=== PATIENT | female | born 2000 | race American Indian/Alaskan Native ===

== ENCOUNTER 2020-08-16 08:00 | Outpatient (CLI) | payer OTHER | END 2020-08-16 08:30 | disposition home or self-care (01) | LOC: PPH VACUNA 08:00 | DX: Z23 Encounter for immunization (principal) ==

== ENCOUNTER 2020-09-05 08:00 | Outpatient (CLI) | payer OTHER | END 2020-09-05 08:30 | disposition home or self-care (01) | LOC: PPH VACUNA 08:00 | DX: Z23 Encounter for immunization (principal) ==

== ENCOUNTER 2021-02-18 10:54 | Emergency (ER) | payer OTHER ==
[~2021-02-18] VITALS: Ht 162.6 cm; Wt 51.7 kg
[2021-02-18] MEDS ORDERED: ZITHROMAX500 MG PO (12:55)
[2021-02-18] MEDS ORDERED: ZITHROMAX200 MG PO (12:57)
== END 2021-02-18 13:28 | disposition home or self-care (01) ==
LOC: ER 10:54
DX: B34.9 Viral infection, unspecified (principal); Z20.822 Contact with and (suspected) exposure to COVID-19

== ENCOUNTER 2021-05-20 11:12 | Emergency (ER) | payer OTHER ==
[~2021-05-20] VITALS: Ht 162.6 cm; Wt 53.1 kg
[~2021-05-20 11:12] MED LIST: ZITHROMAX200 MG PO; ZITHROMAX500 MG PO
== END 2021-05-20 15:59 | disposition home or self-care (01) ==
LOC: ER 11:12
DX: O20.9 Hemorrhage in early pregnancy, unspecified (principal); O34.81 Maternal care for other abnormalities of pelvic organs, first trimester; N83.201 Unspecified ovarian cyst, right side; Z3A.01 Less than 8 weeks gestation of pregnancy; Z91.018 Allergy to other foods

== ENCOUNTER 2021-08-11 07:33 | Emergency (ER) | payer OTHER | END 2021-08-11 14:52 | disposition home or self-care (01) | LOC: ER 07:33 | DX: O20.9 Hemorrhage in early pregnancy, unspecified (principal); Z3A.18 18 weeks gestation of pregnancy; Z91.018 Allergy to other foods ==

== ENCOUNTER 2022-10-06 09:23 | Emergency (ER) | payer OTHER ==
[~2022-10-06] VITALS: Ht 165.1 cm; Wt 61.2 kg
[~2022-10-06 09:23] MED LIST changes: +FOLIC ACID0.8 M1; +PRENATAL CAPLE1 EAC1
== END 2022-10-06 14:03 | disposition home or self-care (01) ==
LOC: ER 09:23
DX: H57.11 Ocular pain, right eye (principal); Z91.018 Allergy to other foods